=== PATIENT | female | born 1965 | race Caucasian/White ===

== ENCOUNTER 2017-12-12 21:34 | Emergency (ER) | payer OTHER ==
[~2017-12-12] VITALS: Ht 170.2 cm; Wt 60.3 kg
[~2017-12-12 21:34] MED LIST: AMOXICILLIN500 M1 PO; NORCO 5-325 TA1 EACH PO
[2017-12-12] MEDS ORDERED: KEFLEX500 M1 PO (21:46)
[2017-12-12 21:53] VITALS: BP 149/46
== END 2017-12-12 21:54 | disposition home or self-care (01) ==
LOC: M.ERS 21:34
DX: L72.0 Epidermal cyst (principal); F17.210 Nicotine dependence, cigarettes, uncomplicated

== ENCOUNTER 2020-04-27 09:36 | Emergency (ER) | payer OTHER ==
[~2020-04-27] VITALS: Ht 170.2 cm; Wt 59.0 kg
[~2020-04-27 09:36] MED LIST changes: +KEFLEX500 M1 PO
[2020-04-27 10:07] LABS: ABSOLUTE BASOPHILS 0.1 thou/uL (0.0-0.2); ABSOLUTE EOSINOPHILS 0.2 thou/uL (0.0-0.7); ABSOLUTE LYMPHOCYTES 2.2 thou/uL (0.8-5.3); ABSOLUTE MONOCYTES 0.7 thou/uL (0.0-1.2); ABSOLUTE NEUTROPHILS 3.5 thou/uL (1.6-8.1); BASOPHILS 0.8 %; EOSINOPHILS 2.5 %; HEMATOCRIT 39.7 % (37.0-47.0); HEMOGLOBIN 13.4 gm/dL (12.0-15.0); LYMPHOCYTES 32.5 %; MCH 30.1 pg (26.0-34.0); MCHC 33.7 g/dL (28.0-37.0); MCV 89.4 fL (80.0-100.0); MONOCYTES 10.8 %; MPV 8.7 fl. (7.2-11.1); NUCLEATED RBCS 0 /100WBC; PLATELET COUNT* 233 thou/uL (150-400); POLYS 53.4 %; RBC 4.44 mil/uL (4.20-5.00); RDW-CV 13.9 % (10.5-14.5); WBC 6.6 thou/uL (4.0-11.0)
[2020-04-27 10:09] LABS: URINE BILIRUBIN NEGATIVE (Negative); URINE BLOOD 3+ (Negative); URINE CLARITY CLOUDY; URINE COLOR RED; URINE GLUCOSE-RANDOM NEGATIVE (Negative); URINE KETONES NEGATIVE (Negative); URINE LEUKOCYTES-REFLEX NEGATIVE (Negative); URINE NITRITE-REFLEX NEGATIVE (Negative); URINE PROTEIN 2+ (Negative); URINE UROBILINOGEN 0.2 E.U./dl (0.2-1.0)
[2020-04-27 10:11] LABS: SQUAMOUS >10 Many /LPF (0-3)
[2020-04-27 10:12] LABS: URINE RBC >20 Many /HPF (0-2); URINE WBC-REFLEX 0-5 Rare /HPF (0-5)
[2020-04-27 10:15] LABS: CASTS None Seen /LPF (None Seen); CRYSTALS None Seen /LPF (None Seen); MUCUS None Seen strn/LPF (None Seen)
[2020-04-27 10:37] LABS: CALCIUM 8.4 mg/dL (8.5-10.1); CREATININE 0.8 mg/dL (0.6-1.3); POTASSIUM 4.1 mmol/L (3.5-5.1)
[2020-04-27 10:41] LABS: ALBUMIN 2.9 g/dL (3.4-5.0); TOTAL BILIRUBIN 0.2 mg/dL (<0.1-1.0); TOTAL PROTEIN 6.1 g/dL (6.4-8.2)
[2020-04-27] MEDS ORDERED: NORCO 5-325 TA1 EAC2 PO (13:39)
[2020-04-27] MEDS ORDERED: IBUPROFEN 800800 M1 PO (13:39)
[2020-04-27 13:45] VITALS: BP 104/47
--- NOTE | 2020-04-29 09:24 | EKG ---
[place] [address] ELECTROCARDIOGRAM REPORT Name: RAJEEV GTZ Room: [facility]#: [id number] Admission: 04/27/20 Attend Phys: Discharge: 04/27/20 Date of : 69 Date of Service: 04/27/20953 Report #: [id number] THIS REPORT FOR: //name// [facility] ED Test Date: 2020-04-27 Test Time: 09:54:52 Pat Name: RAJEEV GTZ Department: Room: Gender: [employer] 1965 Requested By: Jefry Cobb Order Number: [id number] MD: Yayo Schumacher Measurements Intervals [place] Rate: 57 P: 42 CT: 113 QRS: 47 QRSD: 102 T: 63 QT: 441 QTc: 430 Interpretive Statements Sinus rhythm Borderline short CT interval No previous ECG available for comparison Electronically Signed On 04-29-2020 9:24:35 CDT by Yayo Schumacher [email or web address] <ELECTRONICALLY SIGNED> By: Yayo Schumacher MD, [facility] 04/29/20923 3 3 Yayo Schumacher MD, FACC /EPI
== END 2020-04-27 13:45 | disposition home or self-care (01) ==
LOC: M.ERS 09:36
PROVIDERS: Emergency Medicine Emergency Medical Services
DX: N93.8 Other specified abnormal uterine and vaginal bleeding (principal); F17.210 Nicotine dependence, cigarettes, uncomplicated; Z98.51 Tubal ligation status